=== PATIENT | male | born 1975 | race Caucasian/White ===

== ENCOUNTER 2018-01-24 20:22 | Emergency (ER) | payer SELFPAY ==
[2018-01-24 20:45] VITALS: RESP 18
[2018-01-24] MEDS ORDERED: Famotidine 20mg/50ml Premix IVPB STA (21:36)
[2018-01-24] MEDS ORDERED: Sodium Chloride 0.9% 1,000 ML IV SCH (21:45)
--- NOTE | 2018-01-24 21:55 | ED PDOC ---
"HPI: Abdomen Time Seen by Provider: 01/24/18 21:15 Chief Complaint (Nursing): Abdominal Pain Chief Complaint (Provider): Abdominal Pain History Per: Patient History/Exam Limitations: no limitations Onset/Duration Of Symptoms: Days (19:00 last night) Outside of [place] travel?: No Current Symptoms Are (Timing): Still Present Location Of Pain/Discomfort: RLQ Additional Complaint(s): 43 year old male presented to ED complaining of right lower quadrant abdominal pain with onset of 19:00 last night. Patient indicates pain lasted a few hours and resolved but developed the same pain again and has been worsening. He reports he had to leave work early and has had no appetite for the past 2 days associated with nausea. Patient states he took pepto bismol once yesterday at 18:30 and [employer] without relief. Denies radiation of pain, vomiting, diarrhea, fever, recent travel, sick contacts, urinary symptoms, flank pain, CP, and SOB. PCP: none provided Past Medical History Reviewed: Historical Data, Nursing Documentation, Vital Signs Vital Signs: Last Vital Signs Temp 99.4 F 01/24/18 22:29 Pulse 55 L 01/24/18 22:29 Resp 18 01/24/18 22:29 BP 138/94 H 01/24/18 22:29 Pulse Ox 99 01/25/18 02:47 - Medical History PMH: No Chronic Diseases - Surgical History Surgical History: No Surg Hx - Family History Family History: States: Unknown Family Hx - Social History Current smoker - smoking cessation education provided: Yes (1 pack a day) Alcohol: None Drugs: Denies - Home Medications Home Medications: Ambulatory Orders Medication Instructions Recorded Naproxen 500 mg PO BID PRN #20 tab 01/25/18 Ondansetron ODT [Zofran ODT] 4 mg PO Q6 PRN #12 odt 01/25/18 Tamsulosin [Flomax] 0.4 mg PO DAILY #7 cap 01/25/18 traMADol [Ultram] 50 mg PO Q6 PRN #12 tab 01/25/18 - Allergies Allergies/Adverse Reactions: Allergies Allergy/AdvReac Type Severity Reaction Status Date / Time No Known Allergies Allergy Verified 01/24/18 20:42 Review of Systems ROS Statement: Except As Marked, All Systems Reviewed And Found Negative Constitutional: Negative for: Fever Cardiovascular: Negative for: Chest Pain Respiratory: Negative for: Shortness of Breath Gastrointestinal: Positive for: Nausea, Abdominal Pain (RLQ). Negative for: Vomiting, Diarrhea, Other (Radiation of pain) Genitourinary Male: Negative for: Other (urinary symptoms) Physical Exam - Reviewed Nursing Documentation Reviewed: Yes Vital Signs Reviewed: Yes - Physical Exam Comments: GENERAL APPEARANCE: Patient is awake, alert, oriented x 3, in mild painful distress. Speaking in full sentences SKIN: Warm, dry; (-) cyanosis. EYES: (-) conjunctival pallor, (-) scleral icterus. ENMT: Mucous membranes [ ] moist. NECK: (-) tenderness, (-) stiffness, (-) lymphadenopathy. CHEST AND RESPIRATORY: (-) rales, (-) rhonchi, (-) wheezes; breath sounds equal bilaterally. HEART AND CARDIOVASCULAR: (-) irregularity; (-) murmur, (-) gallop. ABDOMEN AND GI: (+) CVA tenderness bilaterally, (+) mcburney's point tenderness. Bowel sounds active; RLQ tenderness to palpation. (-) guarding, (- ) rebound, (-) distension. EXTREMITIES: (-) deformity, (-) edema, (+) distal pulses. NEURO AND PSYCH: Mental status as above; (-) focal findings. - Laboratory Results Result Diagrams: 01/24/18 22:00 01/24/18 22:00 Urine dip results: Positive for: Blood (large), Protein (trace). Negative for: Leukocyte Esterase, Nitrate, Ketones, Glucose, Bilirubin - ECG O2 Sat by Pulse Oximetry: 99 (RA) Pulse Ox Interpretation: Normal Medical Decision Making Medical Decision Making: Initial Impression: Abdominal pain, nausea Initial Plan: CT Abd/pelvis NPO diet ED urine dipstick Famotidine 20mg IV Iohexol 50mL Toradol 30mg IV Sodium chloride 1000mL IV Ondansetron 4mg PO Urine culture Glucose 2330 Repeat BP: 138/94 Repeat HR: [address] scan. [address] without incident. Resting comfortably in ED stretcher. Patient offers no additional complaints at this time. Pain well controlled. Urine Dip and Urinalysis significant for hematuria. 0220 CT reviewed, radiology report follows EXAM: CT Abdomen and Pelvis With Intravenous Contrast CLINICAL HISTORY: 43 years old, male; Pain; Abdominal pain; Localized; Right; Additional info: R/ O appendicitis TECHNIQUE: Axial computed tomography images of the abdomen and pelvis with intravenous contrast. All CT scans at this facility use one or more dose reduction techniques, viz.: automated exposure control; ma/kV adjustment per patient size (including targeted exams where dose is matched to indication; i.e. head); or iterative reconstruction technique. Coronal and sagittal reformatted images were created and reviewed. CONTRAST: 95 mL of [id number] administered intravenously. COMPARISON: CT ABD AND PELV W/CONTRAST 2012-07-18 18:44 FINDINGS: Lung bases: Minimal atelectasis/scarring. ABDOMEN: Liver: Fatty infiltration. Gallbladder and bile ducts: No calcified stones. No ductal dilation. Pancreas: No ductal dilation. No mass. Spleen: No splenomegaly. Adrenals: No mass. Kidneys and ureters: Mild stranding about RIGHT kidney. Slightly delayed enhancement/excretion of RIGHT kidney. Few small renal calculi. Vhoe-ct-ymuwnjfk pelvocaliectasis of RIGHT kidney. Mild to moderately dilated RIGHT ureter. 0.3 x 0.3 x 0.3 cm calculus within RIGHT distal ureter. Stomach and bowel: Few segmental areas of probable underdistention of colon. No definite mural thickening. No obstruction. PELVIS: Appendix: Normal caliber. No inflammation. Bladder: Unremarkable. Reproductive: Unremarkable as visualized. MICHAEL HUI | Final Radiology Report CONFIDENTIALITY STATEMENT This report is intended only for use by the referring physician, and only in accordance with law. If you received this in error, call [phone]. Page 2 of 2 ABDOMEN and PELVIS: Intraperitoneal space: No significant fluid collection. No free air. Bones/joints: Early degenerative changes of spine. No acute fracture. Soft tissues: Tiny umbilical hernia containing fat. Vasculature: Unremarkable. No aneurysm. Lymph nodes: No pathologically enlarged lymph nodes. IMPRESSION: 1. RIGHT distal ureteral calculus with [id number] hydroureteronephrosis. 2. Incidental/non-acute findings are described above. Thank you for allowing us to participate in the care of your patient. Dictated and Authenticated by: Humberto Palomino MD 01/25/2018 2:17 AM Eastern Time ([place] & [place]) 0230 Flomax 0.8mg PO administered. Patient advised to strain urine at home. On re-evaluation, patient reports improvement of symptoms. On exam, patient remains AAOx3, in no acute distress. Lungs clear to auscultation, cardiac RRR, abdomen soft, non-tender, repeat neuro exam shows no focal findings. VSS, stable for discharge. Lab/Diagnostic results d/w the patient in great detail. Diagnosis of abdominal pain, nausea, renal colic, ureteral calculus d/w the patient. Based on history, exam and diagnostic results, plan will be for outpatient follow up with urology. Patient instructed to follow-up with pmd / referral provided / the clinic in 1- 2 days without fail. Advised to take medication as prescribed. Return to the emergency room at any time for any new or worsening symptoms. Patient states he fully agrees with and understands discharge instructions. States that he agrees with the plan and disposition. Verbalized and repeated discharge instructions and plan. I have given the patient opportunity to ask any additional questions. Scribe Attestation: Documented by Dada Escamilla acting as a scribe for Lizette Stovall. Provider Scribe Attestation: All medical record entries made by the Scribe were at my direction and personally dictated by me. I have reviewed the chart and agree that the record accurately reflects my personal performance of the history, physical exam, medical decision making, and the department course for this patient. I have also personally directed, reviewed, and agree with the discharge instructions and disposition. Disposition - Clinical Impression Clinical Impression: Nausea, Abdominal pain, Renal calculus, right - Patient ED Disposition Is Patient to be Admitted: No Counseled Patient/Family Regarding: Studies Performed, Diagnosis, Need For Followup, Rx Given - Disposition Referrals: Hussein Augustin Jr., MD [Staff Provider] - Disposition: Routine/Home Disposition Time: 02:33 Condition: STABLE Additional Instructions: FOLLOW UP WITH PMD/UROLOGY DIRECTED. RETURN TO ED WITH ANY NEW OR WORSENING SYMPTOMS. Prescriptions: Naproxen 500 mg PO BID PRN #20 tab PRN Reason: Pain, Moderate (4-7) Ondansetron ODT [Zofran ODT] 4 mg PO Q6 PRN #12 odt PRN Reason: Nausea/Vomiting Tamsulosin [Flomax] 0.4 mg PO DAILY #7 cap traMADol [Ultram] 50 mg PO Q6 PRN #12 tab PRN Reason: Pain, Severe (8-10) Instructions: Kidney Stones in Adults, Renal Colic, Acute Abdomen (Belly Pain) Forms: [place] ([place]), [facility] ED School/Work Excuse Print Language: ARMENIAN - POA Present On Arrival: None Results - Lab Results Lab Results: 01/24/18 01/24/18 01/24/18 23:40 22:00 22:00 WBC 11.1 H RBC 5.02 Hgb 14.8 Hct 42.8 MCV 85.2 MCH 29.6 MCHC 34.7 RDW 13.0 Plt Count 243 MPV 7.9 Neut % (Auto) 79.2 H Lymph % (Auto) 12.8 L [place] % (Auto) 6.5 Eos % (Auto) 0.8 Baso % (Auto) 0.7 Neut # (Auto) 8.8 H Lymph # (Auto) 1.4 [place] # (Auto) 0.7 Eos # (Auto) 0.1 Baso # (Auto) 0.1 Sodium 142 Potassium 4.1 Chloride 103 Carbon Dioxide 26 Anion Gap 17 BUN 26 H Creatinine 1.4 Est GFR ( Amer) > 60 Est GFR (Non-Af Amer) 55 Random Glucose 98 Calcium 9.0 Total Bilirubin 0.7 AST 27 ALT 45 Alkaline Phosphatase 66 Total Protein 7.4 Albumin 4.1 Globulin 3.4 Albumin/Globulin Ratio 1.2 Lipase 114 Urine Color Yellow Urine Clarity Slighty-cloudy Urine pH 5.0 Ur Specific [place] 1.023 Urine Protein Negative Urine Glucose (UA) Neg Urine Ketones Trace Urine Blood Moderate Urine Nitrate Negative Urine Bilirubin Negative Urine Urobilinogen 0.2-1.0 Ur Leukocyte Esterase Neg Urine RBC (Auto) 49 H Urine Microscopic WBC 2 Ur Squamous Epith Cells < 1"
[2018-01-24] MEDS ORDERED: Famotidine 20mg/50ml 20 MG/50 ML BAG IVPB ONE (22:07)
[2018-01-24 22:11] LABS: BASO # 0.1 K/uL (0.0-0.2); BASO % 0.7 % (0.0-2.0); EOS # 0.1 K/uL (0.0-0.7); EOS % 0.8 % (0.0-4.0); HEMOGLOBIN 14.8 g/dL (12.0-18.0); LYMPH # 1.4 K/uL (1.0-4.3); LYMPH % 12.8 % (20.0-40.0); MEAN CELL VOLUME 85.2 fl (80.0-94.0); MEAN CORPUSCULAR HEMOGLOBIN 29.6 pg (27.0-31.0); MEAN CORPUSCULAR HGB CONC 34.7 g/dL (33.0-37.0); MEAN PLATELET VOLUME 7.9 fl (7.2-11.7); MONO # 0.7 K/uL (0.0-0.8); MONO % 6.5 % (0.0-10.0); NEUT # 8.8 K/uL (1.8-7.0); NEUT % 79.2 % (50.0-75.0); RBC 5.02 Mil/uL (4.40-5.90); WHITE BLOOD COUNT 11.1 K/uL (4.8-10.8)
[2018-01-24 22:17] LABS: ALB/GLOB RATIO 1.2 (1.0-2.1); ALBUMIN 4.1 g/dL (3.5-5.0); ALT/SGPT 45 U/L (21-72); AST/SGOT 27 U/L (17-59); BLOOD UREA NITROGEN 26 mg/dl (9-20); GFR AFRICAN-AMERICAN > 60; GFR NON-AFRICAN AMERICAN 55; LIPASE 114 U/L (23-300)
[2018-01-24] MEDS ORDERED: Iohexol 240 (50 ml) PO STA (22:46)
[2018-01-24] MEDS ORDERED: Iohexol 240 (50 ml) ONE (23:10)
[2018-01-24 23:54] LABS: SQUAMOUS EPITHIAL < 1 /hpf (0-5); URINE BILIRUBIN NEGATIVE (NEGATIVE); URINE BLOOD MODERATE (NEGATIVE); URINE CLARITY SLIGHTY-CLOUDY (Clear); URINE COLOR YELLOW (YELLOW); URINE GLUCOSE (UA) NEG (Normal); URINE LEUKOCYTE ESTERASE NEG Leu/uL (Negative); URINE PROTEIN NEGATIVE (NEGATIVE); URINE UROBILINOGEN 0.2-1.0 mg/dL (0.2-1.0)
[2018-01-25] MEDS ORDERED: Iohexol 300 100 ML IJ ONE (00:58)
[2018-01-25] MEDS ORDERED: Sodium Chloride 0.9% 50 ML IV ONE (00:58)
--- NOTE | 2018-01-25 02:18 | CT ---
EXAM: CT Abdomen and Pelvis With Intravenous Contrast CLINICAL HISTORY: 43 years old, male; Pain; Abdominal pain; Localized; Right; Additional info: R/O appendicitis TECHNIQUE: Axial computed tomography images of the abdomen and pelvis with intravenous contrast. All CT scans at this facility use one or more dose reduction techniques, viz.: automated exposure control; ma/kV adjustment per patient size (including targeted exams where dose is matched to indication; i.e. head); or iterative reconstruction technique. Coronal and sagittal reformatted images were created and reviewed. CONTRAST: 95 mL of [id number] administered intravenously. COMPARISON: CT ABD AND PELV W/CONTRAST 2012-07-18 18:44 FINDINGS: Lung bases: Minimal atelectasis/scarring. ABDOMEN: Liver: Fatty infiltration. Gallbladder and bile ducts: No calcified stones. No ductal dilation. Pancreas: No ductal dilation. No mass. Spleen: No splenomegaly. Adrenals: No mass. Kidneys and ureters: Mild stranding about RIGHT kidney. Slightly delayed enhancement/excretion of RIGHT kidney. Few small renal calculi. Dydu-ah-rkwjdpxo pelvocaliectasis of RIGHT kidney. Mild to moderately dilated RIGHT ureter. 0.3 x 0.3 x 0.3 cm calculus within RIGHT distal ureter. Stomach and bowel: Few segmental areas of probable underdistention of colon. No definite mural thickening. No obstruction. PELVIS: Appendix: Normal caliber. No inflammation. Bladder: Unremarkable. Reproductive: Unremarkable as visualized. ABDOMEN and PELVIS: Intraperitoneal space: No significant fluid collection. No free air. Bones/joints: Early degenerative changes of spine. No acute fracture. Soft tissues: Tiny umbilical hernia containing fat. Vasculature: Unremarkable. No aneurysm. Lymph nodes: No pathologically enlarged lymph nodes. IMPRESSION: 1. RIGHT distal ureteral calculus with [id number] hydroureteronephrosis. 2. Incidental/non-acute findings are described above.
[2018-01-25 03:09] VITALS: BP 123/72; PULSE 56; TEMP 98; O2SAT 96
== END 2018-01-25 03:09 | disposition home or self-care (01) ==
LOC: H.ER 20:22
DX: N13.2 Hydronephrosis with renal and ureteral calculous obstruction (principal); F17.210 Nicotine dependence, cigarettes, uncomplicated
CPT/HCPCS: 74177; 80053; 81003; 83690; 85025; 87086; 96365; 96375; 99284; J1885; J7040; Q9966; Q9967